=== PATIENT | female | born 1965 | race Hispanic/Latino ===

== ENCOUNTER 2017-09-30 07:08 | Day surgery (SDC) | payer BC ==
[2017-09-30] MEDS ORDERED: Ringers Lactate 1,000 ML IV ONE (07:24)
[2017-09-30] MEDS ORDERED: LIDOCAINE 1% W/EPI 1:100,000 MDV 50 ML VIAL ONE (07:44)
[2017-09-30] MEDS ORDERED: NA CHLORIDE 0.9% 1,000 ML ONE (07:44)
[2017-09-30] MEDS ORDERED: PROPOFOL 200 MG/20 ML VIAL IV ONE (07:49)
[2017-09-30] MEDS ORDERED: LIDOCAINE 2% MPF 5 ML VIAL ONE (07:50)
[2017-09-30] MEDS ORDERED: MIDAZOLAM HCL 2 MG/2 ML INJ ONE (07:50)
[2017-09-30] MEDS ORDERED: ONDANSETRON HCL 40 MG/20 ML VIAL ONE (07:51)
[2017-09-30] MEDS ORDERED: FENTANYL CITR 100 MCG/2 ML ONE (07:51)
[2017-09-30] MEDS ORDERED: MEPERIDINE HCL 50 MG/ML AMP ONE (08:58)
--- NOTE | 2017-09-30 17:24 | OP ---
Date of Procedure: 09/30/2017 Surgeon: Cindi Montoya MD Preoperative Diagnoses: Postmenopausal bleeding, intracavitary mass. Postoperative Diagnoses: Postmenopausal bleeding, intracavitary mass. Procedures Performed: Hysteroscopy, dilation and curettage, polypectomy. Anesthesia: General with LMA. Specimens: Endometrial curettings and polyp. Complications: None. Drains: None. Condition: Stable. Findings: Large intracavitary mass, polypoid, arising from the right lateral wall. The left tubal o stium was visualized. Rest of the endometrium appeared to be unremarkable and thin. The mass was ir regular in shape and seemed to have increased vascularity. After informed consent was verified, patient was taken back to the OR. On transvaginal ultrasound, s he was found to have a 4.5 cm endometrial mass. After placing her on the operating table in a supine fashion, general anesthesia was given. She was placed in a dorsal lithotomy position using Thomas st irrups. A pelvic exam performed. Speculum was placed to expose the cervix and prep x3 with Betadine was done. Anterior lip grasped with 2 Allis clamps after opening up the external os with a hemostat . Then, using a SlimLine diagnostic hysteroscope, direct hysteroscopy was performed through the cerv ical canal and traversed into the uterine cavity, and the polypoid mass was seen here and had many fr onds with increased vascularity arising from the right lateral wall. Rest of the endometrium appeare d to be unremarkable. The left tubal ostium was visualized. I was unable to see the right. No othe r abnormalities. The scope was removed. Endometrial polyp forceps was used to remove as much as pos sible for the polyp to get a good sample, and curettings were performed, but they were very scant. I handed the specimen off for permanent pathology. All instruments were removed. Instrument, needle, and sponge counts were done and were correct at the end of the case. The patient was recovered from general and taken to the PACU in stable condition. She will follow up with me in 1 week for results . TARI/SUGEY Voice ID: [id number] Report ID: [id number]
== END 2017-09-30 09:50 | disposition home or self-care (01) ==
LOC: OR 07:08
PROVIDERS: ATTEND Obstetrics & Gynecology
PROC: 0UDB7ZX Extraction of Endometrium, Via Natural or Artificial Opening, Diagnostic (ICD-10-PCS; 2017-09-30)
PROC: 0UJD8ZZ Inspection of Uterus and Cervix, Via Natural or Artificial Opening Endoscopic (ICD-10-PCS; 2017-09-30)
PROC: 0UB97ZX Excision of Uterus, Via Natural or Artificial Opening, Diagnostic (ICD-10-PCS; principal; 2017-09-30 08:30)
DX: N95.0 Postmenopausal bleeding (principal); N84.0 Polyp of corpus uteri; I10 Essential (primary) hypertension; K21.9 Gastro-esophageal reflux disease without esophagitis
CPT/HCPCS: 88305; J2175; J2250; J2405; J3010; J7030